=== PATIENT | female | born 1995 | race Hispanic/Latino ===

== ENCOUNTER 2018-11-18 18:07 | Emergency (ER) | payer MEDICAID, OTHER ==
[~2018-11-18 18:07] MED LIST: FERR325C PO; PREN1TAB89 PO
== END 2018-11-18 19:48 | disposition home or self-care (01) ==
LOC: EDH 18:07
DX: O20.0 Threatened abortion (principal); Z3A.01 Less than 8 weeks gestation of pregnancy
CPT/HCPCS: 81025